=== PATIENT | male | born 2000 | race Native Hawaiian/Other Pacific Islander ===

== ENCOUNTER 2021-01-24 11:06 | Emergency (ER) | payer SELFPAY ==
[~2021-01-24] VITALS: Ht 170.2 cm; Wt 69.5 kg
[2021-01-24 11:07] VITALS: BP 113/68
== END 2021-01-24 12:12 | disposition left against medical advice (07) ==
LOC: M ED 11:06
DX: Z53.29 Procedure and treatment not carried out because of patient's decision for other reasons (principal)

== ENCOUNTER 2023-07-07 09:05 | Emergency (ER) | payer OTHER, SELFPAY ==
[~2023-07-07] VITALS: Ht 167.6 cm; Wt 78.6 kg
[2023-07-07] MEDS: IPRATROPIUM 0.5MG/ALBUTEROL 2.5MG INH SOL UD 3ML (DUONEB) NEB SCH (10:55)
[2023-07-07] MEDS: predniSONE 20 MG TAB PO ONE (10:55)
[2023-07-07] MEDS ORDERED: VENTAER INH (12:25)
[2023-07-07] MEDS ORDERED: PRED20TA PO (12:25)
[2023-07-07 12:38] VITALS: BP 134/78; TEMP 97.6; O2SAT 98
== END 2023-07-07 13:00 | disposition home or self-care (01) ==
LOC: M ED 09:05
DX: J45.901 Unspecified asthma with (acute) exacerbation (principal); Z79.51 Long term (current) use of inhaled steroids; Z79.52 Long term (current) use of systemic steroids
CPT/HCPCS: 71046; 87486; 87581; 87633; 87798; 93005; 99284; J7512